=== PATIENT | female | born 2000 | race African-American/Black ===

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

== ENCOUNTER 2024-03-17 11:09 | Emergency (ER) | payer SELFPAY ==
[~2024-03-17] VITALS: Ht 167.6 cm; Wt 145.5 kg
[2024-03-17 11:24] VITALS: BP 147/91; TEMP 98.4
[2024-03-17 13:27] VITALS: PULSE 82
== END 2024-03-17 13:27 | disposition home or self-care (01) ==
LOC: COL.ER 11:09
DX: B34.9 Viral infection, unspecified (principal)